=== PATIENT | female | born 1970 | race Caucasian/White ===

== ENCOUNTER 2017-01-11 17:19 | Emergency (ER) | payer MEDICAID | END 2017-01-11 20:55 | disposition home or self-care (01) | LOC: D.ER 17:19 | DX: S50.01XA Contusion of right elbow, initial encounter (principal); W19.XXXA Unspecified fall, initial encounter; Y93.89 Activity, other specified; Y92.016 Swimming-pool in single-family (private) house or garden as the place of occurrence of the external cause; F17.200 Nicotine dependence, unspecified, uncomplicated; F98.8 Other specified behavioral and emotional disorders with onset usually occurring in childhood and adolescence ==

== ENCOUNTER 2020-06-02 10:31 | Outpatient (CLI) | payer MEDICAID | END 2020-06-02 10:33 | disposition home or self-care (01) | LOC: D.MAMMO 10:31 | PROVIDERS: ATTEND Family Medicine | DX: Z12.31 Encounter for screening mammogram for malignant neoplasm of breast (principal) ==